=== PATIENT | male | born 1970 | race Two or more races ===

== ENCOUNTER 2016-11-09 02:48 | Emergency (ER) | payer MEDICAID, OTHER ==
[~2016-11-09] VITALS: Ht 177.8 cm; Wt 95.3 kg
--- NOTE | 2016-11-09 02:50 | NUR ---
46 YO MALE BB RA FROM HOME. PT ASSISTED TO ER BED WITH STEADY AGAIT BY EMS. PT DESCRIBES A SHARP LIKE PAIN, LOWER MID CHEST, NON RADIATING X 1 HOUR PT. PT DENIES NAUSEA, VOMIT, SOB OR ANY OTHER MEDICAL COMPLAINTS. 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 AWAITING ORDERS FROM PROVIDER, WILL CONTINUE TO MONITOR
[2016-11-09] MEDS ORDERED: MAG HYDROX/AL HYDROX/SIMETH 30 ML UDC PO ONE (03:00)
[2016-11-09] MEDS ORDERED: LIDOCAINE VISCOUS 2% UD 15 ML UDC MM ONE (03:00)
[2016-11-09] MEDS ORDERED: DICYCLOMINE HCL 10 MG CAPSULE PO ONE ×2 (03:00→03:35)
--- NOTE | 2016-11-09 03:00 | NUR ---
MD VALERA AT BED SIDE AT BED SIDE FOR EVAL
--- NOTE | 2016-11-09 03:30 | NUR ---
EMT COATS AT BED SIDE FOR EKG
[2016-11-09] MEDS ORDERED: LIDOCAINE VISCOUS 2% UD 15 ML UDC ONE (03:34)
[2016-11-09] MEDS ORDERED: MAG HYDROX/AL HYDROX/SIMETH 30 ML UDC ONE (03:35)
--- NOTE | 2016-11-09 03:48 | NUR ---
CREW DIRECTOR AT BED SIDE FOR EVAL
[2016-11-09 03:50] LABS: BASOPHILS % (AUTO) 0.5 % (0.0-2.0); EOSINOPHILS # (AUTO) 0.1 /CMM (0.0-0.7); HEMATOCRIT 46 % (39-51); LYMPHOCYTES # (AUTO) 3.5 /CMM (0.8-4.8); LYMPHOCYTES % (AUTO) 38.2 % (20.0-44.0); MEAN CORPUSCULAR HEMOGLOBIN 28 PG (26.0-33.0); MEAN CORPUSCULAR HGB CONC 32 g/dl (31.0-36.0); MEAN CORPUSCULAR VOLUME 86 fL (80-96); MONOCYTES # (AUTO) 0.5 /CMM (0.1-1.30); MONOCYTES % (AUTO) 4.9 % (2.0-12.0); NEUTROPHILS # (AUTO) 5.1 /CMM (1.8-8.9); NEUTROPHILS % (AUTO) 55.4 % (43.0-81.0); PLATELET COUNT (AUTO) 302 /CMM (150-450); RDW COEFFICIENT OF VARIATION 14.2 (11.5-15.0); RED BLOOD CELL COUNT(AUTO) 5.41 MIL/uL (4.5-6.0); WHITE BLOOD COUNT (AUTO) 9.3 K/uL (4.3-11.0)
[2016-11-09 04:01] LABS: CALCIUM, SERUM 8.9 mg/dL (8.5-10.1); CARBON DIOXIDE 26 mmol/L (21-32); CHLORIDE 107 mmol/L (98-107); CREATININE 0.8 mg/dL (0.6-1.3); GLUCOSE 115 mg/dL (74-106); POTASSIUM 3.7 mmol/L (3.5-5.1); SODIUM SERUM 145 mmol/L (136-145); UREA NITROGEN, BLOOD 13 mg/dL (7-18)
[2016-11-09 04:07] LABS: D-DIMER 0.19 mg/L(FEU (0.17-0.50); INR 0.97 (0.87-1.13); PROTHROMBIN TIME 10.4 SECS (9.5-12.7)
[2016-11-09 04:09] LABS: TROPONIN I < 0.017 ng/mL (0.00-0.056)
[2016-11-09 04:14] LABS: ALANINE AMINOTRANSFERASE 54 U/L (12-78); ALBUMIN 3.7 g/dL (3.4-5.0); ALKALINE PHOSPHATASE 75 U/L (46-116); ASPARTATE AMINOTRANSFERASE 26 U/L (15-37); B-TYPE NATRIURETIC PEPTIDE 15 PG/ML (0-125); BILIRUBIN,DIRECT 0.1 mg/dL (0.0-0.2); BILIRUBIN,TOTAL 0.6 mg/dL (0.2-1.0); TOTAL PROTEIN, SERUM 7.6 g/dL (6.4-8.2)
--- NOTE | 2016-11-09 06:53 | NUR ---
PATIENT RESTING IN ER BED, NAD NOTED, WILL CONTINUE TO MONITOR
--- NOTE | 2016-11-09 08:02 | NUR ---
Pt ambulatory with a steady gait.
--- NOTE | 2016-11-09 08:02 | NUR ---
Patient discharged to home in stable condition. Written and verbal after care instructions given. Patient verbalizes understanding of instruction.
[2016-11-09 08:03] VITALS: BP 122/71
== END 2016-11-09 08:04 | disposition home or self-care (01) ==
LOC: ER 02:49
DX: R07.2 Precordial pain (principal); F10.129 Alcohol abuse with intoxication, unspecified; R12 Heartburn; R79.1 Abnormal coagulation profile; F17.200 Nicotine dependence, unspecified, uncomplicated; K21.9 Gastro-esophageal reflux disease without esophagitis; Z86.73 Personal history of transient ischemic attack (TIA), and cerebral infarction without residual deficits
CPT/HCPCS: 36415; 71010-TC; 80048-TC; 80076-TC; 83880; 84484-TC; 85025-TC; 85378-TC; 85730-TC; A4606; Z7610

== ENCOUNTER 2021-09-27 01:16 | Emergency (ER) | payer OTHER ==
[~2021-09-27] VITALS: Ht 177.8 cm; Wt 108.9 kg
--- NOTE | 2021-09-27 01:22 | NUR ---
BIBRA 61 FROM HOME FAMILY CALLED 911 FOR ETOH. PT AWAKE AND RESPONSIVE; SLURRED SPEECH NOTED. TOELRATING R/A WELL WITH NO RESP DISTRESS. SAFETY MEASURES IN PLACE. CONNECTED PT TO POX AND MONITOR.
--- NOTE | 2021-09-27 01:33 | NUR ---
POC BS ACCUCHECK 106; DR. IQBAL DO AWARE
--- NOTE | 2021-09-27 04:10 | NUR ---
PT SLEEPING COMOFRTABLY BREATHING EVEN AND UNLABORED. V/S WNL.
--- NOTE | 2021-09-27 06:05 | NUR ---
Patient discharged to home in stable condition with . Written and verbal after care instructions given. Patient verbalizes understanding of instruction.
[2021-09-27 06:11] VITALS: BP 109/58
== END 2021-09-27 06:11 | disposition home or self-care (01) ==
LOC: ER 01:21
DX: F10.129 Alcohol abuse with intoxication, unspecified (principal); F17.200 Nicotine dependence, unspecified, uncomplicated; Y90.9 Presence of alcohol in blood, level not specified
CPT/HCPCS: 82962-TC